=== PATIENT | female | born 1970 | race Caucasian/White ===

== ENCOUNTER → 2017-10-07 | Day surgery (SDC) | payer BC, OTHER ==
[2017-09-22 10:46] VITALS: BMI 33.0
[~2017-10-07] VITALS: Ht 170.2 cm; Wt 97.7 kg
[~2017-10-07] MED LIST: ACET-1256 PO; CHOL200010 PO; DICY10CA55 PO; FERR1TAB13 PO; LIDOCAINE HCL 2% 2 ML VIAL (20MG/ML) ONE; MULT-506 PO; PANT40TA PO; PNT500 PO; PROPOFOL IV EMULSION 10 MG/ML 20 ML VIAL IV ONE; SODIUM CHLORIDE 0.9% 500ML 500 ML IV ONE
[2017-10-07 08:26] VITALS: Ht 170.2 cm; Wt 97.7 kg
--- NOTE | 2017-10-07 08:49 | Endo History and Physical ---
History & Physical Date of Service: Oct 07, 2017. Chief Complaint: CROHNS DISEASE Referring Physician: CHANDRIKA CAMARA History of Present Illness 46 yo CF who presents for colonoscopy secondary to Crohn's Disease. Past Medical History Gastrointestinal Disorder, Pulmonary Emboli, Reflux Past Surgical History Hx Cardiac Surgery: No Hx Internal Defibrillator: No Hx Pacemaker: No Hx Abdominal Surgery: Yes (OVARIAN CYST REMOVAL) Hx of Implantable Prosthesis: No Hx Post-Op Nausea and Vomiting: No Hx Cancer Surgery: No Hx Thoracic Surgery: No Hx Orthopedic: No Hx Urinary Tract Surgery: No Family History None Social History Smoking Status: Never Smoker Hx Substance Use: No Hx Alcohol Use: No Allergies Coded Allergies: Mercaptopurine (Verified Allergy, Severe, pancreatitis, 10/07/17) Penicillins (Verified Allergy, Unknown, UNSURE, FROM CHILDHOOD, 10/07/17) Sulfa Drugs (Verified Allergy, Unknown, SICK TO STOMACH, 10/07/17) Aspirin (Verified Adverse Reaction, Mild, VOMITING, 10/07/17) Current Medications Reported Home Medications Medications Dose Route/Sig Max Daily Dose Days Date Category Kp Ferrous Sulfate (Ferrous Sulfate) 325 Mg Tab 1 Tab PO BID 09/22/17 Reported Vitamin D (Cholecalciferol) 2,000 Unit Cap 1 Cap PO QAM 09/22/17 Reported Bentyl (Dicyclomine Hcl) 10 Mg Cap 10 Mg PO HS 09/22/17 Reported Protonix (Pantoprazole Sodium) 40 Mg Tab 40 Mg PO QAM 09/22/17 Reported Pentasa (Mesalamine) 500 Mg Caper 4 Cap PO BID 09/22/17 Reported Tylenol (Acetaminophen) 500 Mg Tab 1,000 Mg PO Q6 PRN 11/24/15 Reported Multivitamin (Multivitamins) Tab 1 Tab PO QAM 08/04/14 Reported Vital Signs Weight (Kilograms): 97.73 Height (Feet): 5 Height (Inches): 7 Date Time Temp Pulse Resp B/P (MAP) Pulse Ox O2 Delivery O2 Flow Rate FiO2 10/07/17 08:32 36.7 89 18 123/75 (91) 96 Room Air Physical Exam General Appearance: WD/WN, no apparent distress Respiratory/Chest: Auscultation: breath sounds normal Cardiovascular: Heart Auscultation: RRR Abdomen: Bowel Sounds: normal Inspection & Palpation: soft, non-distended, no tenderness, guarding & rebound Assessment and Plan Assessment: 46 yo CF who presents for colonoscopy secondary to Crohn's Disease. Plan: Proceed with colonoscopy.
--- NOTE | 2017-10-07 09:21 | GI REPORT ---
Procedure Date: 10/07/2017 8:53 AM Procedure: Colonoscopy Indications: Crohn's disease of the small bowel Medicines: Monitored Anesthesia Care Complications: No immediate complications. Estimated Blood Loss: Estimated blood loss: none. Procedure: Pre-Anesthesia Assessment: - Prior to the procedure, a History and Physical was performed, and patient medications and allergies were reviewed. The patient's tolerance of previous anesthesia was also reviewed. The risks and benefits of the procedure and the sedation options and risks were discussed with the patient. All questions were answered, and informed consent was obtained. Prior Anticoagulants: The patient has taken no previous anticoagulant or antiplatelet agents. ASA Grade Assessment: II - A patient with mild systemic disease. After reviewing the risks and benefits, the patient was deemed in satisfactory condition to undergo the procedure. After I obtained informed consent, the scope was passed under direct vision. Throughout the procedure, the patient's blood pressure, pulse, and oxygen saturations were monitored continuously. The scope was introduced through the anus and advanced to the terminal ileum. The colonoscopy was performed without difficulty. The patient tolerated the procedure well. The quality of the bowel preparation was good. The ileocecal valve, the appendiceal orifice and the rectum were photographed. Findings: The perianal and digital rectal examinations were normal. The distal ileum contained a few three mm ulcers. No bleeding was present. No stigmata of recent bleeding were seen. Biopsies were taken with a cold forceps for histology. Several random biopsies were obtained with cold forceps for histology in the entire colon. Impression: - A few ulcers in the distal ileum. Biopsied. - Several random biopsies were obtained in the entire colon. Recommendation: - Resume previous diet. - Continue present medications. - Repeat colonoscopy for surveillance based on pathology results. - Return to primary care physician as previously scheduled. Abdi Thrasher DO 10/07/2017 9:21:25 AM This report has been signed electronically. Note Initiated On: 10/07/2017 8:53 AM I attest to the content of the Intraoperative Record and orders documented therein, exceptions below
--- NOTE | 2017-10-07 09:23 | Discharge Instructions ---
Endoscopy Patient Instructions Date / Procedure(s) Performed Oct 07, 2017. Colonoscopy Allergy Information Coded Allergies: Mercaptopurine (Verified Allergy, Severe, pancreatitis, 10/07/17) Penicillins (Verified Allergy, Unknown, UNSURE, FROM CHILDHOOD, 10/07/17) Sulfa Drugs (Verified Allergy, Unknown, SICK TO STOMACH, 10/07/17) Aspirin (Verified Adverse Reaction, Mild, VOMITING, 10/07/17) Discharge Date / Findings Oct 07, 2017. Crohn's Ileitis s/p biopsies Random colon biopsies Medication Instructions Stopped Medication(s): NO MVI OR IRON TODAY OK to resume all medications today as prescribed Reported Home Medications Medications Dose Route/Sig Max Daily Dose Days Date Category Kp Ferrous Sulfate (Ferrous Sulfate) 325 Mg Tab 1 Tab PO BID 09/22/17 Reported Vitamin D (Cholecalciferol) 2,000 Unit Cap 1 Cap PO QAM 09/22/17 Reported Bentyl (Dicyclomine Hcl) 10 Mg Cap 10 Mg PO HS 09/22/17 Reported Protonix (Pantoprazole Sodium) 40 Mg Tab 40 Mg PO QAM 09/22/17 Reported Pentasa (Mesalamine) 500 Mg Caper 4 Cap PO BID 09/22/17 Reported Tylenol (Acetaminophen) 500 Mg Tab 1,000 Mg PO Q6 PRN 11/24/15 Reported Multivitamin (Multivitamins) Tab 1 Tab PO QAM 08/04/14 Reported Provider Instructions Activity Restrictions - No exercising or heavy lifting for 24 hours. - Do not drink alcohol the day of the procedure. - Do not drive a car or operate machinery until the day after the procedure. - Do not make any important decisions or sign important papers in 24 hours after the procedure. Following Day: - Return to full activity which may include returning to work/school. Diet Start your diet with liquids and light foods (jello, soup, juice, toast). Then eat your usual diet if not nauseated. Treatment For Common After Affects For mild abdominal pain, bloating, or excessive gas: - Rest - Eat lightly - Lie on right side Follow-Up Information Follow-up with CHANDRIKA CAMARA as scheduled Anesthesia Information What You Should Know You have had a procedure that required some medicine to reduce anxiety and discomfort. This treatment is called moderate sedation. After receiving the treatment, you may be sleepy, but you will be able to breathe on your own. The effects of the treatment may last for several hours. Follow these instructions along with Activity/Diet recommendations noted above: * Do NOT do anything where dizziness or clumsiness would be dangerous. * Rest quietly at home today, then you can be up and about tomorrow. * Have a responsible person stay with you the rest of today. * You may have had an I.V. today. If so, you may take the dressing off later today. Recommendations Call your doctor if: * Trouble breathing * Continuous vomiting for more than 24 hours * Temperature above 101 degrees * Severe abdominal pain or bloating * Pain not relieved by pain medicine ordered * There is increased drainage or redness from any incision * A large amount of rectal bleeding greater than 2-3 tablespoons. (If you had a polyp/s removed or have hemorrhoids, a small amount of blood - from the rectum is to be expected.) * You have any unanswered questions or concerns. IN THE EVENT OF A SERIOUS EMERGENCY, GO TO THE NEAREST EMERGENCY ROOM Your discharge instructions were prepared by provider Abdi Thrasher. Patient Instructions Signature Page Alexandra [place] Patient (or Guardian) Signature/Date: I have read and understand the instructions given to me by my caregivers. Caregiver/RN/Doctor Signature/Date: The above-named patient and/or guardian has received patient instructions on this date. + Original Patient Signature Page (only) stays with chart. Please make copy for patient.
[2017-10-07 09:30] VITALS: BP 130/77; PULSE 78; O2SAT 97
--- NOTE | 2017-10-07 10:07 | Anesthesiology Progress Note ---
Anesthesia Post Op Note Date & Time Oct 07, 2017 at 10:07 Vital Signs Pain Intensity: 0 Vital Signs Past 12 Hours Date Time Temp Pulse Resp B/P (MAP) Pulse Ox O2 Delivery O2 Flow Rate FiO2 10/07/17 09:30 78 20 130/77 (94) 97 Room Air 10/07/17 09:15 90 18 112/69 (83) 96 Room Air 10/07/17 08:32 36.7 89 18 123/75 (91) 96 Room Air Notes Mental Status: alert / awake / arousable, participated in evaluation Nausea / Vomiting: adequately controlled Pain: adequately controlled Airway Patency, RR, SpO2: stable & adequate BP & HR: stable & adequate Hydration State: stable & adequate Anesthetic Complications: no major complications apparent
== END | disposition home or self-care (01) ==
LOC: C.GI 08:08
PROVIDERS: ATTEND Internal Medicine
DX: K50.90 Crohn's disease, unspecified, without complications (principal); K63.3 Ulcer of intestine; Z86.711 Personal history of pulmonary embolism; Z88.0 Allergy status to penicillin; Z88.2 Allergy status to sulfonamides; Z98.890 Other specified postprocedural states; E66.9 Obesity, unspecified; Z68.33 Body mass index [BMI] 33.0-33.9, adult

== ENCOUNTER 2019-08-04 15:35 | Inpatient (IN) ==
[2019-08-04 16:49] LABS: Basophils # (auto) 0.02 K/uL (0-0.2); Basophils % (auto) 0.4 %; Hematocrit (blood only) 35.9 % (37-47); Hemoglobin 11.8 g/dL (12.0-16.0); Lymphocytes # (auto) 1.18 K/uL (1.2-3.4); Lymphocytes % (auto) 21.4 %; Mean Corpuscular Hemoglobin 29.4 pg (25-34); Mean Corpuscular Hgb Conc 32.9 g/dL (32-36); Mean Corpuscular Volume 89.5 fL (80-100); Mean Platelet Volume 9.4 fL (7.4-10.4); Monocytes # (auto) 0.62 K/uL (0.11-0.59); Monocytes % (auto) 11.3 %; Neutrophils # (auto) 3.69 K/uL (1.4-6.5); Neutrophils % (auto) 66.9 %; Platelet Count 204 K/uL (130-400); RDW Coefficient of Variation 13.8 % (11.5-14.5); RDW Standard Deviation 45.4 fL (36.4-46.3); Red Blood Count 4.01 M/uL (4.2-5.4); White Blood Count 5.51 K/uL (4.8-10.8)
[2019-08-04 17:06] LABS: Alanine Aminotransferase 44 U/L (12-78); Aspartate Aminotransferase 27 U/L (15-37); BUN Creatinine Ratio 12.3 (10-20); Blood Urea Nitrogen 12 mg/dl (7-18); Calcium 8.8 mg/dl (8.5-10.1); Carbon Dioxide 27 mmol/L (21-32); Chloride 104 mmol/L (98-107); Est GFR (African American) 79.9; Glucose 153 mg/dl (70-99); Potassium 3.2 mmol/L (3.5-5.1); Sodium 137 mmol/L (136-145)
[2019-08-04 17:11] LABS: Albumin Globulin Ratio 0.6 (0.9-2); Alkaline Phosphatase 96 U/L (45-117); Bilirubin,Total 0.3 mg/dl (0.2-1); Globulin 4.8 gm/dl (2.5-4.0); Total Protein 7.8 gm/dl (6.4-8.2); Troponin I < 0.015 ng/ml (0-0.045)
[2019-08-04] MEDS ORDERED: CEFEPIME 1,000 MG in SYRINGE 0 ML IV STA (17:26)
[2019-08-04] MEDS ORDERED: VANCOMYCIN CONSULT ACTIVE PRN (17:26)
[2019-08-04] MEDS ORDERED: VANCOMYCIN HCL 2,000 MG in SODIUM CHLORIDE 0.9% 500 ML IV ONE (17:26)
[2019-08-04] MEDS ORDERED: POTASSIUM CHLORIDE 20 MEQ TABCR PO STA (17:36)
[2019-08-04] MEDS ORDERED: SODIUM CHLORIDE 0.9% 1000ML 1,000 ML IV STA (17:36)
--- NOTE | 2019-08-04 18:15 | XRay Report ---
XR chest 2V PA/lateral HISTORY: 48 years-old Female worsening pna sx, recent L mid infiltrate follow-up study in a patient with acute cough and left-sided pneumonia COMPARISON: Chest radiograph 08/02/2019 TECHNIQUE: PA and lateral views of the chest FINDINGS: Cardiomediastinal and hilar silhouettes are within normal limits. No pneumothorax, pleural effusion o r overt pulmonary edema. Right lung is clear. Persistent mildly worsened alveolar opacities throughou t the left lower lobe superior segment. Mild degenerative changes of the spine. IMPRESSION: Persistent mildly worsened alveolar opacities of the left lower lobe compatible with ongo ing pneumonia. Follow-up imaging after treatment course recommended to document resolution. The above report was generated using voice recognition software. It may contain grammatical, syntax o r spelling errors. Electronically signed by: Malick Buck M.D. 08/04/2019 6:14 PM
[2019-08-04 18:46] LABS: Influenza A virus by PCR Neg for Influ A (Neg); Influenza B virus by PCR Neg for Influ B (Neg)
[2019-08-04] MEDS ORDERED: TRAMADOL HCL 50 MG TABLET PO PRN (19:24)
[2019-08-04] MEDS ORDERED: MAGNESIUM HYDROXIDE SUSP 30 ML UDC PO PRN (19:28)
[2019-08-04] MEDS ORDERED: ZOLPIDEM TARTRATE 5 MG TAB PO PRN (19:28)
[2019-08-04] MEDS ORDERED: POLYETHYLENE (MIRALAX) 17 GM PACK PO PRN (19:28)
[2019-08-04] MEDS ORDERED: ALUMINUM/MAGNESIUM SUSP 30 ML UDC PO PRN (19:28)
[2019-08-04] MEDS ORDERED: ONDANSETRON INJ 2 MG/ML 2 ML VIAL IV PRN (19:28)
[2019-08-04] MEDS ORDERED: ACETAMINOPHEN 325 MG TAB PO PRN (19:28)
[2019-08-04] MEDS ORDERED: OXYCODONE/ACETAMINOPHEN 5mg/325mg TAB PO PRN (19:30)
--- NOTE | 2019-08-04 20:16 | History & Physical Report ---
Date of Service August 04, 2019 Assessment & Plan (1) Left lower lobe pneumonia: Failed levofloxacin as an outpatient Start her on cefepime/azithromycin She works in the [employer] campus and has different exposure Influenza PCR is negative Ordered sputum culture Ordered repeat blood cultures Ordered urine Legionella Ordered urine strep pneumonia Ordered procalcitonin Further recommendations will follow Recommended outpatient repeat study in 8 weeks to confirm resolution Recommended sleep study as an outpatient Recommended autoimmune work-up as an outpatient (2) Pulmonary emboli: Due to history of pulmonary embolism, ordered CT angiogram rule out new PE with pulmonary infarct that might mimic pneumonia (3) Flu-like symptoms: Her first visit to ER rapid flu was negative Today influenza PCR came back negative We will not initiate Tamiflu (4) Crohn's disease: Currently controlled on mesalamine and dicyclomine Continue home meds History of Present Illness 48-year-old female with past medical history of Crohn's disease, currently controlled on mesalamine and cyclomine, GERD and iron deficiency , presented to the ED 2 days ago with constellation of nonspecific symptoms including as per patient's world congestion in her face, feeling feverish, chills she did not take her temperature, and the ED she was found to have left lower lobe pneumonia and she was discharged on levofloxacin. Unfortunately her symptoms did not improve with levofloxacin, actually as per patient her symptoms got significantly worse, she reported that she cannot lay flat anymore, she started sleeping on a recliner, on top of that 1 of her blood cultures came back positive for gram-positive cocci which turned out to be coagulase-negative not staph lugdunensis. But nevertheless giving his significant worsening in symptoms she will be admitted for changing her antibiotics regimen. Repeat chest x-ray today showed worsening of her pneumonia. Patient does have history of pulmonary embolism that was thought to be provoked provoked by endometrioma, although no recent travel, I consider endometrioma a week provocation and after discussion with her Mr. Isaias Ballard who is in the medical field we both were concerned about possible PE with pulmonary infarct rather than pneumonia, especially that she does not have cough as expected in compatible with her chest x-ray. Primary Care Provider: JAX Granger Allergies Allergy/AdvReac Type Severity Reaction Status Date / Time mercaptopurine Allergy Severe Pancreatiti Verified 08/04/19 16:29 s Penicillins Allergy Unknown Unknown Verified 08/04/19 16:29 Sulfa (Sulfonamide Allergy Unknown SICK TO Verified 08/04/19 16:29 Antibiotics) STOMACH aspirin AdvReac Mild VOMITING Verified 08/04/19 16:29 Home Medications Home Medications Medication Instructions Recorded Confirmed Type acetaminophen 500 mg tablet 1,000 mg PO Q6H PRN tab 06/24/19 08/04/19 History cholecalciferol (vitamin D3) 50 2,000 units PO DAILY 06/24/19 08/04/19 History mcg (2,000 unit) capsule dicyclomine 10 mg capsule 10 mg PO HS 06/24/19 08/04/19 History ferrous sulfate 325 mg (65 mg 325 mg PO BID tab 06/24/19 08/04/19 History iron) tablet mesalamine 500 mg 2,000 mg PO BID cap 06/24/19 08/04/19 History capsule,controlled release multivitamin 1 tab PO QAM 06/24/19 08/04/19 History pantoprazole 40 mg tablet,delayed 40 mg PO DAILY 06/24/19 08/04/19 History release levofloxacin [Levaquin] 750 mg PO DAILY 9 Days #9 tab 08/02/19 08/04/19 Rx fluticasone propionate 2 spray INTRANASAL BID 08/04/19 08/04/19 History ondansetron HCl [Zofran] 4 mg PO Q6H PRN 08/04/19 08/04/19 History tramadol 50 mg PO TID PRN 08/04/19 08/04/19 History Past Med/Surg History Medical History Adnexal cyst (Acute) Crohn's disease (Chronic) Headache (Acute) Intractable abdominal pain (Acute) Pancreatitis (Resolved) Pulmonary emboli (Acute) Shingles (Resolved) Surgical History H/O colonoscopy Social History Preferred Language: Persian Communication Ability: Effective Custodial Supervisor Required: No Beliefs That Will Affect Care: None marital status: Current Living Situation: Spouse current occupational status: employed Feels Safe at Home: Yes Safety Concerns: Feels Safe At This Time Smoking Status: Unknown if ever smoked Hx Alcohol Use: No Hx Substance Use: No Review of Systems Review of Systems: Review of system Constitutional: Positive for fatigue fever and fatigue and chills Eyes: no blurring of vision / no eye pain / no discharge / no redness ENT: no hearing loss / no epistaxis /no swallowing problems Respiratory: Positive for shortness of breath but no cough or wheezing/ no hemoptysis Cardiovascular: no Chest pain / no lower extremity edema / no palpitation Abdomen: no pain / no nausea / no vomiting / no constipation Musculoskeletal: no joint pain / no muscle pain / no joint swelling Genitourinary: no dysuria / no incontinence / no urinary retention Neurologic: no focal weakness / no numbness/tingling / no ataxia Psychiatric: no depression symptoms / no anxiety / no insomnia Endocrine: no excessive thirst / no excessive urination Hematologic: no abnormal bleeding / no bruising / no LN swelling Skin: No rash / no pallor Physical Exam Physical Exam: Physical examination General patient appears to be in moderate distress HEENT: Atraumatic , normocephalic /no jaundice /no pallor /anicteric /no dry mucous membrane /normal external ear inspection Neck: Supple /no swelling /central trach Heart: S1/S2 normal/regular rate and rhythm/no gallop /no rub /no murmur Lungs: Clear to auscultation bilaterally/normal chest with expansion/no rhonchi/no rales/no wheezing/no use of accessory muscles of respiration Abdomen: Soft/nontender/no guarding/no rebound/no organomegaly/no pulsatile mass Musculoskeletal: No swelling/no edema/no tenderness/normal range of motion Neuro exam: Awake alert oriented 3/cranial nerves II through XII appear to be intact/sensation intact/moves all extremities/no abnormal movements Psychiatric evaluation: No depressed mood/normal affect Skin: No rash on exposed skin area/no erythema Extremity: Normal pulse/no pitting edema/no clubbing or cyanosis Results & Data Vital Signs (Past 12 Hours) Vital Signs Temp Pulse Pulse Resp BP BP Pulse Ox 08/04/19 19:50 93 08/04/19 19:40 95 08/04/19 19:31 93 H 17 93 08/04/19 19:30 89 19 122/96 93 08/04/19 19:20 96 H 27 H 92 08/04/19 19:10 93 H 23 08/04/19 19:01 91 H 18 08/04/19 19:00 91 H 15 123/96 08/04/19 18:50 89 23 08/04/19 18:40 95 H 13 08/04/19 18:31 102 H 21 08/04/19 18:30 99 H 22 136/99 08/04/19 18:20 97 H 27 H 08/04/19 18:10 91 H 19 95 08/04/19 18:01 85 13 94 08/04/19 18:00 85 19 151/93 H 94 08/04/19 17:50 85 13 94 08/04/19 17:40 88 13 94 08/04/19 17:31 91 H 16 94 08/04/19 17:30 86 17 139/89 95 08/04/19 17:27 86 19 133/79 93 08/04/19 17:26 86 13 93 08/04/19 17:25 86 13 133/79 94 08/04/19 17:00 11 L 93 08/04/19 16:50 19 93 08/04/19 16:40 14 93 08/04/19 16:30 16 08/04/19 16:20 95 H 12 08/04/19 16:14 91 H 21 08/04/19 15:39 37.1 C 114 H 18 133/84 96 Code Status & VTE Plan Code Status Full code VTE Prophylaxis Plan VTE Prophylaxis will be ordered: Yes PG Care Time/CCT Total # of Minutes Spent Total Time Spent with Patient: 35 minutes total time spent is greater than 50% in coordination of care (as documented) at patient's floor/unit and/or counseling patient/family discussion of care with nursing staff
[2019-08-04] MEDS ORDERED: OPTIRAY 320 125ml IV PRN (20:43)
--- NOTE | 2019-08-04 20:57 | Emergency Department Note ---
Entered by Jeanie Ortiz acting as a scribe for Kelvin Perez MD ED Provider Note CHIEF COMPLAINT: Flu-like symptoms HISTORY OF PRESENT ILLNESS: The patient is a 48 year old female who presents to the Emergency Room with complaints of flu-like symptoms. She came here to the ED and was placed on Levaquin 2 days ago. She has had 1 dose so far as she takes it in the evening. She had an X-ray that came back positive for pneumonia and states her symptoms have continued to worsen. She complains of a cough, chills, diaphoresis, i ntermittent fevers and labored breathing. She notes just getting up from sitting down worsens her breathing. She has been unable to sleep because of drainage and the cough. She admits to a right sided headache 2 days ago, but states it has mostly resolved. She denies any recent travel. 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 Pt denies LOC, diaphoresis, visual changes, neck pain, chest pain, nausea, vomiting, abdominal pain, diarrhea, back pain, melena, hematochezia, urinary symptoms, numbness, weakness, lymphadenopathy, rash, or other complaints. REVIEW OF SYSTEMS: See HPI for pertinent positives and negatives. A total of ten systems were reviewed and were otherwise negative. PMHx/PSHx: Crohn's disease. Pulmonary emboli. Pancreatitis. Shingles. SOCIAL HISTORY: Patient lives at home. PHYSICAL EXAM: GENERAL: Awake, alert, tired-appearing, in no distress HENT: Normocephalic, atraumatic. Oropharynx unremarkable. EYES: PERRL. Normal conjunctiva. Sclera non-icteric. NECK: Inspection normal. Non-tender. Supple. No nuchal rigidity. FROM. No masses. RESPIRATORY: Crackles in mid left lung posteriorly. No wheezes. No rales. Normal respiratory effort. CARDIAC: Normal rate. Normal rhythm. No murmurs. No rubs. Extremities warm and well perfused. Pulses equal. No JVD. CHEST: Costal margin tenderness. GI: Soft, non-distended. No tenderness to palpation. No rebound or guarding. No masses. RECTAL: Deferred. MUSCULOSKELETAL: Atraumatic. Chest examination reveals no tenderness. The back is symmetrical on inspection without obvious abnormality. There is no CVA tenderness to palpation. No joint edema. LOWER EXTREMITIES: Calves are equal size bilaterally and non-tender. No edema. No discoloration. NEURO: Normal sensorium. No sensory or motor deficits noted. SKIN: No rash or jaundice noted. EMERGENCY DEPARTMENT COURSE: 1557: Past medical records reviewed. The patient was evaluated in room B6, and a complete history and physical examination were performed. 1639: Lactate is 1.3. 1731: I reevaluated and discussed test results with the patient. I discussed the plan for hospitalization with her and her . 1800: I spoke with Dr. Cody Up about the patient's case and he will accept the patient for further evaluation. MEDICAL DECISION MAKING: Prior records/ancillary studies reviewed. Patient was treated with Levaquin for left-sided pneumonia. Triage Nursing notes reviewed and agree them. Additional history obtained from the family. The patient's history was concerning for flulike symptoms in the setting of recently diagnosed pneumonia but also possible bacteremia given the abnormal blood culture. Differential diagnosis: Etiologies such as bacteremia, pneumonia, COPD, reactive airway disease, CHF, cardiac ischemia, pulmonary embolism, pneumothorax, musculoskeletal, infections, gastrointestinal, as well as others were entertained. Physical examination: As above. ER treatment provided: IV vancomycin IV cefepime ordered On reassessment the patient felt better. Diagnostic interpretation by me: The electrocardiogram was negative for pathologic change. The labs revealed an unremarkable CBC and chemistry panel. Procalcitonin level low. Repeat blood cultures performed. Imaging studies: Chest x-ray performed and revealed worsening of the left-sided pneumonia. Consultation: A consultation was placed with the hospitalist. The case was discussed and diagnostics were reviewed. The patient was evaluated in the ER for further treatment. IMPRESSION: Bacteremia and Left lower lobe pneumonia PLAN: Admitted to Dr. Casillas The scribe's documentation has been prepared under my direction and personally reviewed by me in its entirety. I confirm that the note above accurately reflects all work, treatment, procedures, and medical decision making performed by me. Impression & Plan Pneumonia Past Med/Surg History Medical History Adnexal cyst (Acute) Crohn's disease (Chronic) Headache (Acute) Intractable abdominal pain (Acute) Pancreatitis (Resolved) Pulmonary emboli (Acute) Shingles (Resolved) Surgical History H/O colonoscopy Social History Preferred Language: Macedonian Communication Ability: Effective Clin Application Specialist Required: No Beliefs That Will Affect Care: None marital status: Current Living Situation: Spouse current occupational status: employed Feels Safe at Home: Yes Safety Concerns: Feels Safe At This Time Smoking Status: Unknown if ever smoked Hx Alcohol Use: No Hx Substance Use: No Results & Data Vital Signs Vital Signs - 24 hr 08/04/19 15:39 08/04/19 16:14 08/04/19 16:20 Temperature 37.1 C Temperature Source Oral Pulse Rate 114 H 91 H 95 H Pulse Rate [Finger] Pulse Rate from SpO2 Sensor Respiratory Rate 18 21 12 Blood Pressure 133/84 Blood Pressure [Right Arm] Blood Pressure Mean 100 Blood Pressure Mean [Right Arm] Blood Pressure Position Sitting Pulse Oximetry 96 Oxygen Delivery Method Room Air Room Air Room Air Sepsis Recent Fever Within 48 Hours No Sepsis New/Unexplained Change in Mental Status No Sepsis Action Taken by Nursing No Action Required 08/04/19 16:30 08/04/19 16:40 08/04/19 16:50 Temperature Temperature Source Pulse Rate Pulse Rate [Finger] Pulse Rate from SpO2 Sensor 88 87 Respiratory Rate 16 14 19 Blood Pressure Blood Pressure [Right Arm] Blood Pressure Mean Blood Pressure Mean [Right Arm] Blood Pressure Position Pulse Oximetry 93 93 Oxygen Delivery Method Room Air Room Air Room Air Sepsis Recent Fever Within 48 Hours Sepsis New/Unexplained Change in Mental Status Sepsis Action Taken by Nursing 08/04/19 17:00 08/04/19 17:25 08/04/19 17:26 Temperature Temperature Source Pulse Rate 86 Pulse Rate [Finger] 86 Pulse Rate from SpO2 Sensor 90 86 Respiratory Rate 11 L 13 13 Blood Pressure Blood Pressure [Right Arm] 133/79 Blood Pressure Mean Blood Pressure Mean [Right Arm] 97 Blood Pressure Position Pulse Oximetry 93 94 93 Oxygen Delivery Method Room Air Room Air Room Air Sepsis Recent Fever Within 48 Hours Sepsis New/Unexplained Change in Mental Status Sepsis Action Taken by Nursing 08/04/19 17:27 08/04/19 17:30 08/04/19 17:31 Temperature Temperature Source Pulse Rate 86 86 91 H Pulse Rate [Finger] Pulse Rate from SpO2 Sensor 87 87 92 H Respiratory Rate 19 17 16 Blood Pressure 133/79 139/89 Blood Pressure [Right Arm] Blood Pressure Mean 95 102 Blood Pressure Mean [Right Arm] Blood Pressure Position Pulse Oximetry 93 95 94 Oxygen Delivery Method Room Air Room Air Room Air Sepsis Recent Fever Within 48 Hours Sepsis New/Unexplained Change in Mental Status Sepsis Action Taken by Nursing 08/04/19 17:40 08/04/19 17:50 08/04/19 18:00 Temperature Temperature Source Pulse Rate 88 85 85 Pulse Rate [Finger] Pulse Rate from SpO2 Sensor 88 84 85 Respiratory Rate 13 13 19 Blood Pressure 151/93 H Blood Pressure [Right Arm] Blood Pressure Mean 115 Blood Pressure Mean [Right Arm] Blood Pressure Position Pulse Oximetry 94 94 94 Oxygen Delivery Method Room Air Room Air Room Air Sepsis Recent Fever Within 48 Hours Sepsis New/Unexplained Change in Mental Status Sepsis Action Taken by Nursing 08/04/19 18:01 08/04/19 18:10 08/04/19 18:20 Temperature Temperature Source Pulse Rate 85 91 H 97 H Pulse Rate [Finger] Pulse Rate from SpO2 Sensor 87 91 H Respiratory Rate 13 19 27 H Blood Pressure Blood Pressure [Right Arm] Blood Pressure Mean Blood Pressure Mean [Right Arm] Blood Pressure Position Pulse Oximetry 94 95 Oxygen Delivery Method Room Air Room Air Room Air Sepsis Recent Fever Within 48 Hours Sepsis New/Unexplained Change in Mental Status Sepsis Action Taken by Nursing 08/04/19 18:30 08/04/19 18:31 08/04/19 18:40 Temperature Temperature Source Pulse Rate 99 H 102 H 95 H Pulse Rate [Finger] Pulse Rate from SpO2 Sensor Respiratory Rate 22 21 13 Blood Pressure 136/99 Blood Pressure [Right Arm] Blood Pressure Mean 110 Blood Pressure Mean [Right Arm] Blood Pressure Position Pulse Oximetry Oxygen Delivery Method Room Air Room Air Room Air Sepsis Recent Fever Within 48 Hours Sepsis New/Unexplained Change in Mental Status Sepsis Action Taken by Nursing 08/04/19 18:50 08/04/19 19:00 08/04/19 19:01 Temperature Temperature Source Pulse Rate 89 91 H 91 H Pulse Rate [Finger] Pulse Rate from SpO2 Sensor Respiratory Rate 23 15 18 Blood Pressure 123/96 Blood Pressure [Right Arm] Blood Pressure Mean 106 Blood Pressure Mean [Right Arm] Blood Pressure Position Pulse Oximetry Oxygen Delivery Method Room Air Room Air Room Air Sepsis Recent Fever Within 48 Hours Sepsis New/Unexplained Change in Mental Status Sepsis Action Taken by Nursing 08/04/19 19:10 08/04/19 19:20 Temperature Temperature Source Pulse Rate 93 H 96 H Pulse Rate [Finger] Pulse Rate from SpO2 Sensor 95 H Respiratory Rate 23 27 H Blood Pressure Blood Pressure [Right Arm] Blood Pressure Mean Blood Pressure Mean [Right Arm] Blood Pressure Position Pulse Oximetry 92 Oxygen Delivery Method Room Air Room Air Sepsis Recent Fever Within 48 Hours Sepsis New/Unexplained Change in Mental Status Sepsis Action Taken by [facility] Medications Current Medication List: was personally reviewed by me Laboratory Data Attestation: I reviewed the patient's lab results. Result diagrams: 08/04/19 16:38 08/04/19 16:38 Lab Results 08/04/19 08/04/19 08/04/19 Range/Units 16:26 16:38 16:38 WBC 5.51 (4.8-10.8) K/uL RBC 4.01 L (4.2-5.4) M/uL Hgb 11.8 L (12.0-16.0) g/dL Hct 35.9 L (37-47) % MCV 89.5 (80-100) fL MCH 29.4 (25-34) pg MCHC 32.9 (32-36) g/dL RDW Std Deviation 45.4 (36.4-46.3) fL RDW Coeff of Cherelle 13.8 (11.5-14.5) % Plt Count 204 (130-400) K/uL MPV 9.4 (7.4-10.4) fL Immature Gran % (Auto) 0.0 % Neut % (Auto) 66.9 % Lymph % (Auto) 21.4 % [place] % (Auto) 11.3 % Eos % (Auto) 0.0 % Baso % (Auto) 0.4 % Immature Gran # (Auto) 0.00 (0.00-0.02) K/uL Neut # (Auto) 3.69 (1.4-6.5) K/uL Lymph # (Auto) 1.18 L (1.2-3.4) K/uL [place] # (Auto) 0.62 H (0.11-0.59) K/uL Eos # (Auto) 0.00 (0-0.5) K/uL Baso # (Auto) 0.02 (0-0.2) K/uL Sodium 137 (136-145) mmol/L Potassium 3.2 L (3.5-5.1) mmol/L Chloride 104 (98-107) mmol/L Carbon Dioxide 27 (21-32) mmol/L Anion Gap 6.0 (3-11) BUN 12 (7-18) mg/dl Creatinine 0.96 (0.6-1.2) mg/dl Est Cr Clr Drug Dosing Not Reportable Est GFR ( Amer) 79.9 Est GFR (Non-Af Amer) 69.0 BUN/Creatinine Ratio 12.3 (10-20) Glucose 153 H (70-99) mg/dl POC Lactic Acid Frank 1.30 (0.90-1.70) mmol/L Calcium 8.8 (8.5-10.1) mg/dl Total Bilirubin 0.3 (0.2-1) mg/dl AST 27 (15-37) U/L ALT 44 (12-78) U/L Alkaline Phosphatase 96 (45-117) U/L Troponin I < 0.015 (0-0.045) ng/ml Total Protein 7.8 (6.4-8.2) gm/dl Albumin 3.0 L (3.4-5.0) gm/dl Globulin 4.8 H (2.5-4.0) gm/dl Albumin/Globulin Ratio 0.6 L (0.9-2) Procalcitonin (0-0.5) ng/ml Nasal Screen MRSA (PCR) (Negative) Influenza Type A (PCR) (Neg) Influenza Type B (PCR) (Neg) 08/04/19 08/04/19 08/04/19 Range/Units 16:38 18:02 18:02 WBC (4.8-10.8) K/uL RBC (4.2-5.4) M/uL Hgb (12.0-16.0) g/dL Hct (37-47) % MCV (80-100) fL MCH (25-34) pg MCHC (32-36) g/dL RDW Std Deviation (36.4-46.3) fL RDW Coeff of Cherelle (11.5-14.5) % Plt Count (130-400) K/uL MPV (7.4-10.4) fL Immature Gran % (Auto) % Neut % (Auto) % Lymph % (Auto) % [place] % (Auto) % Eos % (Auto) % Baso % (Auto) % Immature Gran # (Auto) (0.00-0.02) K/uL Neut # (Auto) (1.4-6.5) K/uL Lymph # (Auto) (1.2-3.4) K/uL [place] # (Auto) (0.11-0.59) K/uL Eos # (Auto) (0-0.5) K/uL Baso # (Auto) (0-0.2) K/uL Sodium (136-145) mmol/L Potassium (3.5-5.1) mmol/L Chloride (98-107) mmol/L Carbon Dioxide (21-32) mmol/L Anion Gap (3-11) BUN (7-18) mg/dl Creatinine (0.6-1.2) mg/dl Est Cr Clr Drug Dosing Est GFR ( Amer) Est GFR (Non-Af Amer) BUN/Creatinine Ratio (10-20) Glucose (70-99) mg/dl POC Lactic Acid Frank (0.90-1.70) mmol/L Calcium (8.5-10.1) mg/dl Total Bilirubin (0.2-1) mg/dl AST (15-37) U/L ALT (12-78) U/L Alkaline Phosphatase (45-117) U/L Troponin I (0-0.045) ng/ml Total Protein (6.4-8.2) gm/dl Albumin (3.4-5.0) gm/dl Globulin (2.5-4.0) gm/dl Albumin/Globulin Ratio (0.9-2) Procalcitonin 0.10 (0-0.5) ng/ml Nasal Screen MRSA (PCR) Negative (Negative) Influenza Type A (PCR) Neg for Influ A (Neg) Influenza Type B (PCR) Neg for Influ B (Neg) Administered Medications Sodium Chloride (Nss 1000ml) 1,000 mls @ 125 mls/hr IV .Q8H STA Stop: 08/05/19 01:35 Last Admin: 08/04/19 18:01 Dose: 125 mls/hr Documented by: [id number] Ioversol (Optiray 320 125ml) 116 ml IV ONCE PRN PRN Reason: Interaction Checking Stop: 08/08/19 20:42 Last Admin: 08/04/19 20:43 Dose: 116 ml Documented by: [id number] Discontinued Medications Vancomycin HCl 2,000 mg/ (Sodium Chloride) 540 mls @ 200 mls/hr IV NOW ONE Stop: 08/04/19 20:07 Last Admin: 08/04/19 19:16 Dose: Not Given Documented by: [id number] Cefepime HCl 1,000 mg/ Syringe 11.3 mls @ 5.5 mls/min IV NOW STA; Protocol Stop: 08/04/19 17:28 Last Admin: 08/04/19 19:08 Dose: 5.5 mls/min Documented by: [id number] Potassium Chloride (Klor-Con M20) 20 meq PO NOW STA Stop: 08/04/19 17:37 Last Admin: 08/04/19 17:58 Dose: 20 meq Documented by: [id number] Imaging Data Radiologist's Impression: Radiology results as stated below per my review and the radiologist's interpretation: XR chest 2V PA/lateral HISTORY: 48 years-old Female worsening pna sx, recent L mid infiltrate follow- up study in a patient with acute cough and left-sided pneumonia COMPARISON: Chest radiograph 08/02/2019 TECHNIQUE: PA and lateral views of the chest FINDINGS: Cardiomediastinal and hilar silhouettes are within normal limits. No pneumothorax, pleural effusion or overt pulmonary edema. Right lung is clear. Persistent mildly worsened alveolar opacities throughout the left lower lobe superior segment. Mild degenerative changes of the spine. IMPRESSION: Persistent mildly worsened alveolar opacities of the left lower lobe compatible with ongoing pneumonia. Follow-up imaging after treatment course recommended to document resolution. The above report was generated using voice recognition software. It may contain grammatical, syntax or spelling errors. Electronically signed by: Malick Buck M.D. 08/04/2019 6:14 PM ECG Data Attestation: I personally reviewed and interpreted this ECG as follows: Indication: + other (Flu Like Symptoms) Rate (beats per minute): 78 Rhythm: normal sinus ECG Intervals/blocks: + Normal QRS ECG ST segments: + Normal ST segments ECG Findings: + Other (Normal axis); no PACs and no PVCs Blood Pressure Blood Pressure Findings: Elevated blood pressure Blood Pressure Disposition: further management by hospitalist Discharge Plan Visit Data Chief Complaint: Flu Like Symptoms Stated Complaint: PNEUMONIA, SYMPTOMS NOT IMPROVING ED Provider: Kelvin Perez Discharge Problem: Pneumonia Patient Disposition: Admitted As Inpatient Discharge Instructions Interventions: ED Discharge Assessment Last Done: 08/04/19 20:09 The scribe's documentation has been prepared under my direction and personally reviewed by me in its entirety. I confirm that the note above accurately reflects all work, treatment, procedures, and medical decision making performed by me.
--- NOTE | 2019-08-04 21:31 | CT Scan Report ---
CHEST CTA for PULMONARY ARTERIES CT DOSE: 747.21 mGy.cm HISTORY: Pulmonary embolus. Cough. TECHNIQUE: Multiaxial CT images of the chest were performed following the intravenous administration of contrast to evaluate the pulmonary arteries. Maximal intensity projection images were also obtaine d. A dose lowering technique was utilized adhering to the principles of ALARA. COMPARISON STUDY: Chest CTA 02/10/2015. FINDINGS: Normal caliber thoracic aorta with no evidence for dissection. The heart is normal in size. Trace left pleural effusion. No pericardial effusion. No filling defects within the pulmonary arteri es to suggest pulmonary embolus. Limited views of the report for abdomen demonstrate a normal liver a nd spleen. The visualized adrenal glands are unremarkable. Normal esophagus. A few mildly enlarged me diastinal left hilar lymph nodes. These may be reactive. No suspicious lytic are blastic osseous lesi ons. No pneumothorax. Dense consolidation within the superior segment of the left lower lobe with pat juvenal airspace opacities within the basilar segments. There is associated air bronchograms. This favors a pneumonia. IMPRESSION: 1. Left lower lobe consolidation as described above likely representing a pneumonia. Recommend follow -up to ensure resolution. 2. Trace left pleural effusion. 3. No evidence for pulmonary embolus. 4. Mild mediastinal left hilar lymphadenopathy. This may be reactive. Electronically signed by: Chan Mendoza M.D. 08/04/2019 9:30 PM
[2019-08-04] MEDS: FLUTICASONE PROPIONATE NA SPR 16 GM BTL SCH (22:07)
[2019-08-04] MEDS: DICYCLOMINE HCL 10 MG CAP PO SCH (22:07)
[2019-08-04] MEDS: NSS + 20MEQ KCL 20 MEQ/1,000 ML BAG IV SCH (22:07)
[2019-08-04] MEDS: AZITHROMYCIN 500 MG in DEXTROSE 5% 250 ML IV SCH (22:08)
[2019-08-04] MEDS: MESALAMINE 250 MG CAPCR PO SCH (22:08)
[2019-08-04] MEDS: ENOXAPARIN INJ 40 MG/0.4 ML SYR SQ SCH (22:10)
[2019-08-05] MEDS: CEFEPIME 2,000 MG in SYRINGE 7.5 ML IV SCH ×2 (04:33→11:50)
[2019-08-05] MEDS: FLUTICASONE PROPIONATE NA SPR 16 GM BTL SCH ×2 (08:22→20:23)
[2019-08-05] MEDS: PANTOprazole 40 MG TAB PO SCH (08:22)
[2019-08-05] MEDS: MESALAMINE 250 MG CAPCR PO SCH ×2 (08:23→20:24)
[2019-08-05 12:47] LABS: BUN Creatinine Ratio 17.3 (10-20); C Reactive Protein 7.14 mg/dl (0-0.29); Creatinine Clr Calc Pharmacy 112.9 ml/min; Est GFR (African American) 113.2; Est GFR (Non-African American) 97.7; Magnesium 2.1 mg/dl (1.8-2.4)
--- NOTE | 2019-08-05 12:54 | Hospitalist Progress Note ---
Date of Service August 05, 2019 Assessment & Plan (1) Left lower lobe pneumonia: community-acquired with less chance for gram negative pathogen (theoretically could have gram negative etiology due to immunocompromised state from Crohn's). MRSA swab negative. clinically overall much improved, afebrile, eating, normal wbc count today. CT chest from admission with very dense, classic, lobar pneumonia of LLL. it is possible that the levaquin being used as outpatient very well could have been the right antibiotic for her she just had slow clinical response to such. either way she is doing better and I anticipate d/c home tomorrow. cont cefepime/zithromax for now. at discharge consider - * resuming levaquin OR * using a cephalosporin with doxy (or zithromax) - latter for atypical coverage blood cx's from 08/04 neg to date will need repeat CXR in 1month post-d/c (2) Crohn's disease: quiescent/controlled cont mesalamine (3) History of pulmonary embolus (PE): noted no PE seen on CTA chest last pm (4) Hypokalemia: resolved (5) Hyperglycemia: BSG 153 yesterday no prior h/o DM will check hemoglobin a1c in am w/ AM labs (6) Abnormal casts in urine: seen on u/a from 08/02 (granular and WBC casts) likely due to previous poor oral intake in setting of significant LLL pneumonia / SIRS urine culture negative no UTI symptoms no pyelonephritis symptoms/signs creatinine stable today on BMP no further w/u (7) Contamination of blood culture: blood cx's from 08/02 with 1/4 bottles + for coag neg staph the other 3 bottles remain negative AND the sets from 08/04 are fully negative thus, the 1 bottle w/ coag neg staph is likely contamination cont to follow (8) DVT prophylaxis: lovenox daily updated today anticipate d/c tomorrow can stop fluids Subjective patient feels much better today. headache improved. no cough or congestion. no pleuritic cp. no substernal chest pain. appetite improved. tele normal overnight. myalgias improved. Review of Systems Constitutional: + fatigue; no fever, no chills and no anorexia Respiratory: no cough, no dyspnea and no dyspnea on exertion Cardiovascular: no chest pain Gastrointestinal: no abdominal pain, no nausea and no vomiting Physical Exam Constitutional: well developed, well nourished and + obese; no acute distress and no altered mental status ENMT: external ear and nose normal, oropharynx normal Respiratory: no respiratory distress Auscultation: + crackles (LLL); no wheezes Cardiovascular: Rate/Rhythm: regular rate and regular rhythm Heart Sounds: normal S1 and normal S2; no murmur Vessels: posterior tibial pulses present and dorsalis pedis pulses present; no JVD Extremities: no edema Gastrointestinal (Abdomen): normal bowel sounds, soft, nontender, no hepatosplenomegaly Skin: no rashes, warm and dry Psychiatric: A+Ox3, euthymic affect Lymphatic: no cervical lymphadenopathy Results & Data Vital Signs (Past 12 Hours) Vital Signs Temp Pulse Resp BP BP Pulse Ox 08/05/19 11:00 36.8 C 85 18 133/91 94 08/05/19 07:05 36.5 C 78 18 138/88 93 08/05/19 04:31 36.7 C 94 H 18 127/83 94 Laboratory Results Laboratory Results - last 24 hr 08/04/19 08/04/19 08/04/19 16:26 16:38 16:38 WBC 5.51 RBC 4.01 L Hgb 11.8 L Hct 35.9 L MCV 89.5 MCH 29.4 MCHC 32.9 RDW Std Deviation 45.4 RDW Coeff of Cherelle 13.8 Plt Count 204 MPV 9.4 Immature Gran % (Auto) 0.0 Neut % (Auto) 66.9 Lymph % (Auto) 21.4 Arthur % (Auto) 11.3 Eos % (Auto) 0.0 Baso % (Auto) 0.4 Immature Gran # (Auto) 0.00 Neut # (Auto) 3.69 Lymph # (Auto) 1.18 L Arthur # (Auto) 0.62 H Eos # (Auto) 0.00 Baso # (Auto) 0.02 ESR Sodium 137 Potassium 3.2 L Chloride 104 Carbon Dioxide 27 Anion Gap 6.0 BUN 12 Creatinine 0.96 Est Cr Clr Drug Dosing Not Reportable Est GFR ( Amer) 79.9 Est GFR (Non-Af Amer) 69.0 BUN/Creatinine Ratio 12.3 Glucose 153 H POC Lactic Acid Frank 1.30 Calcium 8.8 Magnesium Total Bilirubin 0.3 AST 27 ALT 44 Alkaline Phosphatase 96 Troponin I < 0.015 C-Reactive Protein Total Protein 7.8 Albumin 3.0 L Globulin 4.8 H Albumin/Globulin Ratio 0.6 L Procalcitonin Nasal Screen MRSA (PCR) Influenza Type A (PCR) Influenza Type B (PCR) Urine Legionella Ag 08/04/19 08/04/19 08/04/19 16:38 18:02 18:02 WBC RBC Hgb Hct MCV MCH MCHC RDW Std Deviation RDW Coeff of Cherelle Plt Count MPV Immature Gran % (Auto) Neut % (Auto) Lymph % (Auto) [place] % (Auto) Eos % (Auto) Baso % (Auto) Immature Gran # (Auto) Neut # (Auto) Lymph # (Auto) [place] # (Auto) Eos # (Auto) Baso # (Auto) ESR Sodium Potassium Chloride Carbon Dioxide Anion Gap BUN Creatinine Est Cr Clr Drug Dosing Est GFR ( Amer) Est GFR (Non-Af Amer) BUN/Creatinine Ratio Glucose POC Lactic Acid Frank Calcium Magnesium Total Bilirubin AST ALT Alkaline Phosphatase Troponin I C-Reactive Protein Total Protein Albumin Globulin Albumin/Globulin Ratio Procalcitonin 0.10 Nasal Screen MRSA (PCR) Negative Influenza Type A (PCR) Neg for Influ A Influenza Type B (PCR) Neg for Influ B Urine Legionella Ag 08/04/19 08/05/19 08/05/19 22:10 12:10 12:10 WBC RBC Hgb Hct MCV MCH MCHC RDW Std Deviation RDW Coeff of Cherelle Plt Count MPV Immature Gran % (Auto) Neut % (Auto) Lymph % (Auto) [place] % (Auto) Eos % (Auto) Baso % (Auto) Immature Gran # (Auto) Neut # (Auto) Lymph # (Auto) Arthur # (Auto) Eos # (Auto) Baso # (Auto) ESR > 90 H Sodium 140 Potassium 4.0 D Chloride 107 Carbon Dioxide 25 Anion Gap 7.0 BUN 12 Creatinine 0.72 Est Cr Clr Drug Dosing 112.9 Est GFR ( Amer) 113.2 Est GFR (Non-Af Amer) 97.7 BUN/Creatinine Ratio 17.3 Glucose 105 H POC Lactic Acid Frank Calcium 9.0 Magnesium 2.1 Total Bilirubin AST ALT Alkaline Phosphatase Troponin I C-Reactive Protein 7.14 H Total Protein Albumin Globulin Albumin/Globulin Ratio Procalcitonin Nasal Screen MRSA (PCR) Influenza Type A (PCR) Influenza Type B (PCR) Urine Legionella Ag Pending PG Care Time/CCT Total # of Minutes Spent Total Time Spent with Patient: Total time spent is greater than 50% in coordination of care (as documented) at patient's floor/unit and/or counseling patient: (1) Left lower lobe pneumonia Pneumonia type: due to unspecified organism Qualified Code(s): J18.1 - Lobar pneumonia, unspecified organism (2) Crohn's disease Gastrointestinal tract location: unspecified location Digestive disease complication type: without complication Qualified Code(s): K50.90 - Crohn's disease, unspecified, without complications
[2019-08-05] MEDS: NSS + 20MEQ KCL 20 MEQ/1,000 ML BAG IV SCH (17:46)
[2019-08-05] MEDS ORDERED: CEFEPIME IV SCH (18:00)
[2019-08-05] MEDS: CEFEPIME 1,000 MG in SYRINGE 0 ML IV SCH (18:45)
[2019-08-05] MEDS: ENOXAPARIN INJ 40 MG/0.4 ML SYR SQ SCH (20:22)
[2019-08-05] MEDS: DICYCLOMINE HCL 10 MG CAP PO SCH (20:23)
[2019-08-06] MEDS: AZITHROMYCIN 500 MG in DEXTROSE 5% 250 ML IV SCH (01:55)
[2019-08-06] MEDS: CEFEPIME 1,000 MG in SYRINGE 0 ML IV SCH (05:37)
[2019-08-06 07:47] LABS: Estimated Average Glucose 143 mg/dl; Hemoglobin A1C 6.6 % (4.5-5.6)
[2019-08-06 07:49] LABS: BUN Creatinine Ratio 15.7 (10-20); Creatinine Clr Calc Pharmacy 105.1 ml/min; Est GFR (African American) 104.3; Potassium 3.8 mmol/L (3.5-5.1)
[2019-08-06] MEDS ORDERED: LACTOBACILLUS ACIDOPHILUS (FLORANEX) TAB PO SCH (08:00)
[2019-08-06] MEDS: MESALAMINE 250 MG CAPCR PO SCH (08:12)
[2019-08-06] MEDS: PANTOprazole 40 MG TAB PO SCH (08:14)
[2019-08-06] MEDS: FLUTICASONE PROPIONATE NA SPR 16 GM BTL SCH (08:15)
--- NOTE | 2019-08-06 10:40 | Discharge Summary ---
Date of Service August 06, 2019 Discharge Data Allergies Allergy/AdvReac Type Severity Reaction Status Date / Time mercaptopurine Allergy Severe Pancreatiti Verified 08/04/19 16:29 s Penicillins Allergy Unknown Unknown Verified 08/04/19 16:29 Sulfa (Sulfonamide Allergy Unknown SICK TO Verified 08/04/19 16:29 Antibiotics) STOMACH aspirin AdvReac Mild VOMITING Verified 08/04/19 16:29 Consultations 08/04/19 17:41 ED Decision to Admit Stat Ordered Studies 08/04/19 19:26 CT angio chest PE protocol Stat Hospital Course (1) Left lower lobe pneumonia: community-acquired with less chance for gram negative pathogen (theoretically could have gram negative etiology due to immunocompromised state from Crohn's). MRSA swab negative. clinically overall much improved, afebrile, eating, normal wbc count today. CT chest from admission with very dense, classic, lobar pneumonia of LLL. it is possible that the levaquin being used as outpatient very well could have been the right antibiotic for her she just had slow clinical response to such. either way she is doing better and I anticipate d/c home tomorrow. cont cefepime/zithromax for now. at discharge consider - * resuming levaquin OR * using a cephalosporin with doxy (or zithromax) - latter for atypical coverage blood cx's from 08/04 neg to date will need repeat CXR in 1month post-d/c (2) Crohn's disease: quiescent/controlled cont mesalamine (3) History of pulmonary embolus (PE): noted no PE seen on CTA chest last pm (4) Hypokalemia: resolved (5) Hyperglycemia: BSG 153 yesterday no prior h/o DM will check hemoglobin a1c in am w/ AM labs (6) Abnormal casts in urine: seen on u/a from 08/02 (granular and WBC casts) likely due to previous poor oral intake in setting of significant LLL pneumonia / SIRS urine culture negative no UTI symptoms no pyelonephritis symptoms/signs creatinine stable today on BMP no further w/u (7) Contamination of blood culture: blood cx's from 08/02 with 1/4 bottles + for coag neg staph the other 3 bottles remain negative AND the sets from 08/04 are fully negative thus, the 1 bottle w/ coag neg staph is likely contamination cont to follow (8) DVT prophylaxis: lovenox daily updated today anticipate d/c tomorrow can stop fluids Discharge Plan Discharge Items Patient Disposition: Home - Self-Care Reason For Visit: PNEUMONIA Discharge Diagnosis: Community acquired pneumonia Elevated HbA1C (suggestive of diabetes) Condition on Discharge: Good Activity: Resume your previous activity Non-emergency contact: Primary Care Provider Call non-emergency contact if: you have any medication questions and your symptoms worsen Follow-up/Referrals: Alia Luz CRNP [Primary Care Provider] - Diet: Carb Consistent or DM2 Ambulatory Orders: XR chest 2V PA/lateral (Routine) Timeframe: 4 Weeks Location: Determined by Patient Ordered By: Kuldip Jones Attending Provider Instructions: You were diagnosed with community acquired pneumonia with possible failure of Levaquin as outpatient treatment. This was treated with IV cefepime and azithromycin and your breathing improved. Will switch to cefdinir and azithromycin to complete antibiotic course as prescribed below. Please continue to use incentive spirometer, flutter valve as needed. Consider Mucinex (guaifenesin) as needed to help cough up mucus. Recommend using probiotics with lactobacillus to prevent antibiotic-associated diarrhea. Advise repeating chest XR in approximately 4-6 weeks to check for resolution. Recommend discussing with your primary care provider regarding sleep study as you appear to have multiple symptoms suggestive of this. Recommend discussing penicillin allergy testing given possibility this is not a true allergy. Please discuss with your PCP. You also had elevated glucose levels. HbA1C was suggestive of diabetes. No medications started for this at this time but recommend following up with your primary care provider regarding this. Kind regards, Dr Kuldip Ferrera Pending Studies at Discharge: Yes (legionella urine) Stand-Alone Forms: My [facility] iCreate, Smoking Cessation Medications and DC Order Prescriptions: New cefdinir 300 mg capsule 300 mg PO Q12H 6 Days Qty: 12 RF: 0 azithromycin 250 mg tablet 250 mg PO DAILY 3 Days Qty: 3 RF: 0 Lactobacillus acidophilus 100 mg (1 billion cell) capsule 100 mg PO TID 6 Days Qty: 18 RF: 0 Continued pantoprazole 40 mg tablet,delayed release (DR/EC) 40 mg PO DAILY RF: 0 multivitamin tablet 1 tab PO QAM RF: 0 mesalamine 500 mg capsule, extended release 2,000 mg PO BID RF: 0 ferrous sulfate 325 mg (65 mg iron) tablet 325 mg PO BID RF: 0 dicyclomine 10 mg capsule 10 mg PO HS RF: 0 acetaminophen [Tylenol Extra Strength] 500 mg tablet 1,000 mg PO Q6H PRN (Reason: Fever Or Pain) RF: 0 cholecalciferol (vitamin D3) 2,000 unit capsule 2,000 units PO DAILY RF: 0 fluticasone propionate 50 mcg/actuation spray,suspension 2 spray INTRANASAL BID RF: 0 ondansetron HCl [Zofran] 4 mg tablet 4 mg PO Q6H PRN (Reason: Nausea And Vomiting) RF: 0 tramadol 50 mg tablet 50 mg PO TID PRN (Reason: Pain) RF: 0 Discontinued levofloxacin [Levaquin] 750 mg tablet 750 mg PO DAILY 9 Days Qty: 9 RF: 0 Discharge Orders: Discharge Order (Routine); Ordered 08/06/19 Ordered By: Kuldip Santana/Other Patient Handouts: Snoring Sleep Apnea, ED Hyperglycemia New Susp Diabetes Admission Data Admit Date/Time: 08/04/19 19:28 Attending Provider: Kuldip Ferrera Admit Provider: Jimmie Salas Primary Care Provider: Alia Luz Other Providers: Jimmie Salas
== END 2019-08-06 12:35 | disposition home or self-care (01) | DRG 194 ==
LOC: ED 15:35 → 2S 19:28 → SUATTDRO 19:28 → 2S 20:09